=== PATIENT | female | born 1945 | race Caucasian/White ===

== ENCOUNTER → 2018-04-19 | Outpatient (CLI) | payer MEDICARE, OTHER ==
[~2018-04-19] MED LIST: ASPIR 8181 M1 PO; CALCIUM500 M3 NG; CELEBREX200 MG PO; CENTRUM CARD1 TABLET PO; HYDROCHLOROTHIA25 MG PO; NORVASC10 MG PO; SIMVASTATIN40 M1 PO; TRAMADOL HCL50 MG PO
== END | disposition home or self-care (01) ==
LOC: CDC 13:30
DX: Z01.810 Encounter for preprocedural cardiovascular examination (principal); R00.1 Bradycardia, unspecified; R94.31 Abnormal electrocardiogram [ECG] [EKG]
CPT/HCPCS: 93000